=== PATIENT | female | born 1965 | race Caucasian/White ===

== ENCOUNTER 2023-01-25 17:57 | Inpatient (IN) | payer OTHER ==
[2023-01-25 18:30] VITALS: BMI 20.2
[2023-01-25] MEDS ORDERED: BISMUTH SUBSALICYLATE 524 MG/30 ML PO PRN (20:45)
[2023-01-25] MEDS ORDERED: MAGNESIUM HYDROX 2400MG/30ML ORAL SUSPENSION 30 ML CUP PO PRN (20:45)
[2023-01-25] MEDS ORDERED: NALOXONE HCL 0.4 MG/ML VIAL IM PRN (20:45)
[2023-01-25] MEDS ORDERED: BENZOCAINE/MENTHOL (CHLORASEPTIC ) LOZENGE MM PRN (20:45)
[2023-01-25] MEDS ORDERED: NALOXONE HCL (KLOXXADO) 8 MG SPRAY NS PRN (20:45)
[2023-01-25] MEDS ORDERED: DICYCLOMINE HCL 10 MG CAPSULE PO PRN (20:45)
[2023-01-25] MEDS ORDERED: POLYETHYLENE GLYCOL (HEALTHYLAX) 3350 17 GM PACKET PO PRN (20:45)
[2023-01-25] MEDS ORDERED: guaiFENesin 600 MG TABLET.ER (FP) PO PRN (20:45)
[2023-01-25] MEDS ORDERED: ACETAMINOPHEN 325 MG TABLET (FP) PO PRN (20:45)
[2023-01-25] MEDS ORDERED: BENZONATATE 200 MG CAPSULE PO PRN (20:45)
[2023-01-25] MEDS ORDERED: IBUPROFEN 600 MG TABLET (FP) PO PRN (20:45)
[2023-01-25] MEDS ORDERED: ONDANSETRON *ODT* 4 MG TABLET SL PRN (20:45)
[2023-01-25] MEDS ORDERED: IBUPROFEN 400 MG TABLET (FP) PO PRN (20:45)
[2023-01-25] MEDS ORDERED: MAG HYDROX/AL HYDROX/SIMETH 30 ML UNIT-DOSE CUP PO PRN (20:45)
[2023-01-25] MEDS: chlordiazePOXIDE HCL 25 MG CAPSULE PO PRN (21:11)
[2023-01-25] MEDS ORDERED: MELATONIN 5 MG TABLETS PO SCH (22:00)
[2023-01-25] MEDS: THIAMINE HCL 100 MG TABLET (FP) PO SCH (22:43)
[2023-01-25] MEDS: chlordiazePOXIDE HCL 25 MG CAPSULE PO SCH (23:37)
[2023-01-25] MEDS: METHOCARBAMOL 500 MG TABLET PO PRN (23:41)
[2023-01-26] MEDS: hydrOXYzine PAMOATE 25 MG CAPSULE (FP) PO PRN ×2 (01:30→22:09)
[2023-01-26] MEDS: chlordiazePOXIDE HCL 25 MG CAPSULE PO PRN (03:42)
[2023-01-26] MEDS: chlordiazePOXIDE HCL 25 MG CAPSULE PO SCH ×4 (05:48→22:10)
[2023-01-26] MEDS: PRENATAL VITAMINS W/ FOLIC ACID TABLET (FP) PO SCH (10:13)
[2023-01-26 11:38] LABS: HEMATOCRIT 32.8 % (32.4-45.2); HEMOGLOBIN 10.9 GM/dL (10.7-15.3); MCH 29.2 pg (25.7-33.7); MCHC 33.2 g/dl (32.0-36.0); MEAN CELL VOLUME 87.9 fl (80-96); MEAN PLT VOLUME 7.7 fl (7.5-11.1); PLATELET COUNT 170 10^3/uL (134-434); RBC 3.73 M/mm3 (3.60-5.2); RDW 18.1 % (11.6-15.6)
[2023-01-26 11:48] LABS: POTASSIUM 3.2 mmol/L (3.5-5.1)
[2023-01-26 11:51] LABS: WHITE BLOOD COUNT 1.7 K/mm3 (4.0-10.0)
[2023-01-26] MEDS ORDERED: traZODone HCL 50 MG TABLET (FP) PO PRN (12:07)
[2023-01-26 12:16] LABS: BLOOD UREA NITROGEN 7.6 mg/dL (7-18); CALCIUM 8.6 mg/dL (8.5-10.1)
[2023-01-26 12:17] LABS: ALBUMIN 3.2 g/dl (3.4-5.0); CREATININE 0.6 mg/dL (0.55-1.3)
[2023-01-26 12:20] LABS: BILIRUBIN,TOTAL 1.8 mg/dL (0.2-1); TOT PROT 6.2 g/dl (6.4-8.2)
[2023-01-26] MEDS: ESCITALOPRAM OXALATE 10 MG TABLET PO SCH (12:38)
[2023-01-26] MEDS ORDERED: POTASSIUM CHLORIDE ORAL LIQUID 20 MEQ/15 ML PO ONE (13:00)
[2023-01-26] MEDS: LOPERAMIDE HCL 2 MG CAPSULE PO PRN (14:42)
[2023-01-26 17:38] VITALS: RESP 16
[2023-01-26 21:36] VITALS: PULSE 66
[2023-01-26] MEDS: METHOCARBAMOL 500 MG TABLET PO PRN (22:09)
[2023-01-26] MEDS: THIAMINE HCL 100 MG TABLET (FP) PO SCH (22:10)
[2023-01-26] MEDS: POTASSIUM CHLORIDE ORAL LIQUID 20 MEQ/15 ML PO SCH (22:36)
[2023-01-27] MEDS ORDERED: chlordiazePOXIDE HCL 25 MG CAPSULE PO SCH (05:00)
[2023-01-27] MEDS: LOPERAMIDE HCL 2 MG CAPSULE PO PRN (05:36)
[2023-01-27 06:59] VITALS: BP 110/69; TEMP 97.5
[2023-01-27] MEDS: ESCITALOPRAM OXALATE 10 MG TABLET PO SCH (09:36)
[2023-01-27] MEDS: POTASSIUM CHLORIDE ORAL LIQUID 20 MEQ/15 ML PO SCH (09:36)
[2023-01-27] MEDS: PRENATAL VITAMINS W/ FOLIC ACID TABLET (FP) PO SCH (09:37)
[2023-01-27 12:13] LABS: BASO % 0.8 % (0-2.0); EOS % 8.4 % (0-4.5); LYMPH % 35.9 % (8-40); MCH 29.3 pg (25.7-33.7); MCHC 33.3 g/dl (32.0-36.0); MEAN PLT VOLUME 8.3 fl (7.5-11.1); MONO % 7.1 % (3.8-10.2); NEUT % 47.8 % (42.8-82.8); PLATELET COUNT 168 10^3/uL (134-434); RBC 4.09 M/mm3 (3.60-5.2); WHITE BLOOD COUNT 2.4 K/mm3 (4.0-10.0)
[2023-01-28] MEDS ORDERED: chlordiazePOXIDE HCL 10 MG CAPSULE PO PRN
[2023-01-28] MEDS ORDERED: chlordiazePOXIDE HCL 10 MG CAPSULE PO SCH (05:00)
[2023-01-29] MEDS ORDERED: chlordiazePOXIDE HCL 10 MG CAPSULE PO SCH (05:00)
[2023-01-30] MEDS ORDERED: chlordiazePOXIDE HCL 10 MG CAPSULE PO ONE (05:00)
== END 2023-01-27 10:38 | disposition left against medical advice (07) | DRG 770 ==
LOC: YASAS 17:57 → EDBD 17:57 → Y3N 21:15
PROVIDERS: ADMIT Allergy & Immunology; ATTEND Surgery
PROC: HZ2ZZZZ Detoxification Services for Substance Abuse Treatment (ICD-10-PCS; principal; 2023-01-25)
DX: F10.230 Alcohol dependence with withdrawal, uncomplicated (principal); F10.280 Alcohol dependence with alcohol-induced anxiety disorder; F10.282 Alcohol dependence with alcohol-induced sleep disorder; F43.10 Post-traumatic stress disorder, unspecified; D64.9 Anemia, unspecified; E87.6 Hypokalemia; J45.909 Unspecified asthma, uncomplicated; K90.0 Celiac disease; Z86.69 Personal history of other diseases of the nervous system and sense organs
CPT/HCPCS: 36415; 80053; 84132; 85025; 85027; 86780; 87635; 93005; 93010